=== PATIENT | male | born 1975 | race Caucasian/White ===

== ENCOUNTER 2016-05-23 08:13 | Emergency (ER) | payer MEDICAID, OTHER ==
[~2016-05-23] VITALS: Ht 177.8 cm; Wt 83.0 kg
[2016-05-23 08:18] VITALS: BP 132/78
== END 2016-05-23 10:33 | disposition home or self-care (01) ==
LOC: ER 08:15
DX: M25.512 Pain in left shoulder (principal)
CPT/HCPCS: 73030; 99284; A4606; Z7610

== ENCOUNTER 2017-04-16 09:55 | Emergency (ER) | payer OTHER ==
[~2017-04-16] VITALS: Ht 177.8 cm; Wt 90.7 kg
[2017-04-16 10:57] VITALS: BP 128/77
== END 2017-04-16 11:44 | disposition home or self-care (01) ==
LOC: ER 09:57
DX: J06.9 Acute upper respiratory infection, unspecified (principal)
CPT/HCPCS: 99283; A4606; Z7610